=== PATIENT | male | born 1980 | race Caucasian/White ===

== ENCOUNTER 2017-04-21 20:50 | Emergency (ER) | payer OTHER ==
[2017-04-21 21:50] VITALS: BP 138/79
[2017-04-21 22:00] LABS: BASOPHIL % 0.2 % (0-2); PLATELET COUNT 170 x10^3mcL (130-400); RED CELL DISTRIBUTION WIDTH 12.5 % (11.5-14.5)
[2017-04-21 22:09] LABS: CARBON DIOXIDE 28.4 mmol/L (21-32); CREATININE SERUM 1.6 mg/dL (0.7-1.3); POTASSIUM SERUM 3.6 mmol/L (3.5-5.1)
[2017-04-21 22:13] LABS: ALBUMIN 3.5 g/dL (3.4-5.0); BILIRUBIN TOTAL 0.57 mg/dL (0.20-1.00); TOTAL PROTEIN, SERUM 7.3 g/dL (6.4-8.2)
== END 2017-04-22 00:39 | disposition home or self-care (01) ==
LOC: ED 20:50
PROVIDERS: Emergency Medicine
DX: J18.9 Pneumonia, unspecified organism (principal); M54.6 Pain in thoracic spine; F12.10 Cannabis abuse, uncomplicated
CPT/HCPCS: 85378; J1885; Q0092; Q9967

== ENCOUNTER 2017-06-09 19:47 | Observation (INO) | payer OTHER ==
[~2017-06-09] VITALS: Ht 182.9 cm; Wt 139.2 kg
[2017-06-09 20:43] LABS: BASOPHIL % 0.5 % (0-2); PLATELET COUNT 157 x10^3mcL (130-400); RED CELL DISTRIBUTION WIDTH 13.7 % (11.5-14.5)
[2017-06-09 20:44] LABS: CALCIUM 8.9 mg/dL (8.5-10.1); CARBON DIOXIDE 30.6 mmol/L (21-32); CHLORIDE SERUM 111 mmol/L (98-107); GFR1 > 60 mL/min; GLUCOSE SERUM 129 mg/dL (74-106); POTASSIUM SERUM 3.9 mmol/L (3.5-5.1); SODIUM SERUM 144 mmol/L (136-145)
[2017-06-09 20:48] LABS: ALBUMIN 3.7 g/dL (3.4-5.0); ALKALINE PHOSPHATASE 68 U/L (46-116); ALT/SGPT 20 U/L (16-63); AST/SGOT 12 U/L (15-37); BILIRUBIN TOTAL 0.5 mg/dL (0.20-1.00); TOTAL PROTEIN, SERUM 6.9 g/dL (6.4-8.2)
[2017-06-09 23:54] LABS: CHOLESTEROL/HDL RATIO 2.9; PHOSPHOROUS 3.3 mg/dL (2.5-4.9)
[2017-06-09 23:56] VITALS: BP 129/54
[2017-06-09 23:58] VITALS: BP 129/54
[2017-06-10 00:06] LABS: FREE T4 0.98 ng/dL (0.76-1.46); FREE THYROXINE INDEX 2.3 ug/dL (1.4-4.5); T4(THYROXINE) 6.7 ug/dL (4.7-13.3)
[2017-06-10 05:51] VITALS: BP 128/73
[2017-06-10 09:20] VITALS: BP 125/80
[2017-06-10 13:40] VITALS: BP 108/76
[2017-06-10 14:45] LABS: T3 TOTAL 1.18 ng/mL
[2017-06-10] MEDS ORDERED: LIPI10 PO (15:23)
[2017-06-10] MEDS ORDERED: GOOD SENSE OMEP20 MG PO (15:25)
[2017-06-10 15:52] VITALS: BP 108/76
== END 2017-06-10 16:10 | disposition home or self-care (01) | DRG 392 ==
LOC: ED 19:47 → DU 22:58
PROVIDERS: Emergency Medicine; ADMIT Family Medicine
DX: K21.9 Gastro-esophageal reflux disease without esophagitis (principal); Z68.41 Body mass index [BMI] 40.0-44.9, adult; E66.01 Morbid (severe) obesity due to excess calories; E87.8 Other disorders of electrolyte and fluid balance, not elsewhere classified; F12.10 Cannabis abuse, uncomplicated; E78.5 Hyperlipidemia, unspecified
CPT/HCPCS: 83880; 84439; G0378; J7030; Q0092

== ENCOUNTER 2017-11-03 19:11 | Emergency (ER) | payer OTHER ==
[~2017-11-03 19:11] MED LIST: GOOD SENSE OMEP20 MG PO; LIPI10 PO
[2017-11-03 21:37] LABS: BASOPHIL % 0.8 % (0-2); PLATELET COUNT 169 x10^3mcL (130-400)
[2017-11-03 21:46] LABS: CARBON DIOXIDE 33.3 mmol/L (21-32); CHLORIDE SERUM 105 mmol/L (98-107); GFR1 > 60 mL/min; GLUCOSE SERUM 124 mg/dL (74-106); POTASSIUM SERUM 4.5 mmol/L (3.5-5.1); SODIUM SERUM 139 mmol/L (136-145)
[2017-11-03 21:51] LABS: ALBUMIN 3.6 g/dL (3.4-5.0); ALKALINE PHOSPHATASE 64 U/L (46-116); ALT/SGPT 28 U/L (16-63); AST/SGOT 15 U/L (15-37); BILIRUBIN TOTAL 0.5 mg/dL (0.20-1.00)
[2017-11-03 22:30] VITALS: BP 134/82
== END 2017-11-03 22:30 | disposition home or self-care (01) ==
LOC: ED 19:11
PROVIDERS: Emergency Medicine
DX: R00.2 Palpitations (principal); R07.9 Chest pain, unspecified
CPT/HCPCS: 36415; 83880